=== PATIENT | female | born 1975 | race Two or more races ===

== ENCOUNTER → 2016-11-08 | Outpatient (CLI) | payer OTHER ==
[~2016-11-08] MED LIST: IBUP200C10 PO; TYLE325T5 PO
--- NOTE | 2016-11-09 06:32 | REP ---
Clinical: Constipation and abdominal pain. Technique: Upright view of the chest with supine and upright views of the abdomen and pelvis. Findings: Frontal upright view of the chest demonstrates no acute cardiopulmonary process or free air below the diaphragm to suspect pneumoperitoneum. Supine and upright views of the abdomen and pelvis demonstrate nonspecific bowel gas pattern without obstruction or perforation. No organomegaly. Cholelithiasis noted. Skeletal structures normal for age. Impression: Cholelithiasis. Nonspecific bowel gas pattern. Signed by Darwin Aceves MD 11/09/2016 03:28 A
== END ==
LOC: M LRY 10:09
PROVIDERS: ATTEND Family Medicine
DX: K59.00 Constipation, unspecified (principal)

== ENCOUNTER → 2016-11-08 | Outpatient (REF) ==
[2016-11-09 12:37] LABS: HEP C VIRUS AB INDEX SOURCE PT < 0.0 INDEX (0.0-0.8)
[2016-11-09 13:07] LABS: HIV SCREEN CENTAUR SOURCE NEGATIVE (NEGATIVE)
== END ==
LOC: M SFHCLERA 11:29
PROVIDERS: ATTEND Family Medicine
DX: Z00.00 Encounter for general adult medical examination without abnormal findings (principal)

== ENCOUNTER → 2016-11-08 | Outpatient (REF) | payer OTHER ==
[2016-11-08 13:27] LABS: BASO # 0.1 K/mm3 (0.0-0.2); BASO % 1.2 % (0.0-1.0); EOS # 0.1 K/mm3 (0.0-0.50); EOS % 1.5 % (0.0-3.0); LARGE UNSTAINED CELL # 0.1 K/mm3 (0.0-0.4); LARGE UNSTAINED CELL % 1.3 % (0.0-4.0); LYMPH # 1.9 K/mm3 (1.5-4.5); LYMPH % 32.1 % (24.0-44.0); MEAN CORPUSCULAR HGB CONC 33.2 g/dl (32.0-36.5); MEAN CORPUSCULAR VOLUME 84.4 fl (80.0-96.0); MONO # 0.2 K/mm3 (0.0-0.8); MONO % 3.7 % (0.0-5.0); NEUTROPHILS # 3.5 K/mm3 (1.8-7.7); NEUTROPHILS % 60.3 % (36.0-66.0); PLATELET COUNT, AUTOMATED 227 k/mm3 (150-450); RED CELL DISTRIBUTION WIDTH 12.9 % (11.5-14.5); WHITE BLOOD COUNT 5.8 K/mm3 (4.0-10.0)
[2016-11-08 13:36] LABS: INR 1.01
[2016-11-08 13:52] LABS: ALBUMIN 3.6 GM/DL (3.2-5.2); ALBUMIN/GLOBULIN RATIO 1.09 (1.00-1.93); ALKALINE PHOSPHATASE 93 U/L (45-117); ALT/SGPT 24 U/L (12-78); ANION GAP 6 MEQ/L (8-16); AST/SGOT 14 U/L (15-37); BILIRUBIN,TOTAL 0.3 MG/DL (0.2-1.0); BLOOD UREA NITROGEN 10 MG/DL (7-18); CALCIUM LEVEL 9.3 MG/DL (8.5-10.1); CARBON DIOXIDE LEVEL 28 MEQ/L (21-32); CHLORIDE LEVEL 105 MEQ/L (98-107); CHOLESTEROL LEVEL 149 MG/DL (<200); CREATININE FOR GFR 0.74 MG/DL (0.55-1.02); FREE T4 1.04 NG/DL (0.76-1.46); GLOMERULAR FILTRATION RATE > 60.0 (>60); GLUCOSE, FASTING 84 MG/DL (70-105); MAGNESIUM LEVEL 2.2 MG/DL (1.8-2.4); POTASSIUM SERUM 4.3 MEQ/L (3.5-5.1); SODIUM LEVEL 139 MEQ/L (136-145); TOTAL PROTEIN 6.9 GM/DL (6.4-8.2); TRIGLYCERIDES LEVEL 75 MG/DL (<150)
== END ==
LOC: M SFHCLERA 10:05
PROVIDERS: ATTEND Family Medicine
DX: T14.8 Other injury of unspecified body region (principal); K59.00 Constipation, unspecified; Z13.1 Encounter for screening for diabetes mellitus; Z13.220 Encounter for screening for lipoid disorders; X58.XXXA Exposure to other specified factors, initial encounter; Y92.9 Unspecified place or not applicable; Y93.9 Activity, unspecified; Y99.9 Unspecified external cause status

== ENCOUNTER → 2018-06-30 | Outpatient (REF) | payer OTHER ==
[~2018-06-30] MED LIST changes: -IBUP200C10 PO; +IBUP200C25 PO
== END ==
LOC: M LAB REF 09:16
PROVIDERS: ATTEND Internal Medicine Endocrinology, Diabetes & Metabolism
DX: E04.1 Nontoxic single thyroid nodule (principal)

== ENCOUNTER 2021-01-06 17:41 | Emergency (ER) | payer OTHER ==
[~2021-01-06] VITALS: Ht 167.6 cm; Wt 109.1 kg
--- NOTE | 2021-01-06 23:52 | REPVR ---
PROCEDURE INFORMATION: Exam: US Duplex Left Lower Extremity Veins, Limited Exam date and time: 01/06/2021 11:36 PM Age: 45 years old Clinical indication: Pain; Leg, lower; Left; Additional info: Cast with FX femur, sent by ortho RO dvy TECHNIQUE: Imaging protocol: Real-time Duplex ultrasound of the Left Lower Extremity with 2-D teresa scale, color Doppler flow and spectral waveform analysis with image documentation. Limited exam focused on the left lower extremity veins. COMPARISON: CT-Tib/Fib WITHOUT CONTRAST LEFT 01/06/2021 11:06 PM FINDINGS: Left deep veins: Unremarkable. The common femoral, femoral, proximal profunda femoral are patent without thrombus. Because of swelling and the patient's fracture /cast the popliteal vein could not be evaluated. Left superficial veins: Unremarkable. Saphenofemoral junction is patent without thrombus. Soft tissues: There is soft tissue swelling. IMPRESSION: There is no evidence of acute deep venous thrombosis left leg. However because of the injury and cast the popliteal vein could not be evaluated. Electronically signed by: Devyn Nichole On 01/06/2021 23:51:49 PM
--- NOTE | 2021-01-07 00:02 | REPVR ---
PROCEDURE INFORMATION: Exam: CT Left Lower Extremity Without Contrast, Ankle Exam date and time: 01/06/2021 11:14 PM Age: 45 years old Clinical indication: Injury or trauma; Fall; Fracture, traumatic; Closed fracture; Ankle; Left; Not specified; Additional info: FX distal fibula pre op per ortho TECHNIQUE: Imaging protocol: CT of the Left lower extremity without contrast was performed. Exam focused on the ankle. Radiation optimization: All CT scans at this facility use at least one of these dose optimization techniques: automated exposure control; mA and/or kV adjustment per patient size (includes targeted exams where dose is matched to clinical indication); or iterative reconstruction. COMPARISON: CR ANKLE COMPLETE 09/12/2014 12:00 PM FINDINGS: Bones/joints: There is a comminuted fracture of the distal fibula along with the soft tissue swelling. There is a small joint effusion. The tibia appears intact. The distal fibula demonstrates an oblique fracture line measuring approximately 3 mm. There is a separate fracture fragment more anterior in position that is and angulated. There are small fragments of bone at the distal medial malleolus and lateral malleolus which may be chronic. Soft tissues: There is prominent soft tissue swelling throughout the leg. Soft tissue swelling is noted of both the ankle and the foot. IMPRESSION: Prominent oblique fracture of the distal fibula with approximately 3 mm of separation. Anterior at the distal fibula there is a 2 cm fragment of bone by 7 mm and angulated. Electronically signed by: Devyn Nichole On 01/07/2021 00:02:09 AM
[2021-01-07 01:26] VITALS: BP 155/93
== END 2021-01-07 01:30 | disposition home or self-care (01) ==
LOC: M ED 17:41
DX: S82.435A Nondisplaced oblique fracture of shaft of left fibula, initial encounter for closed fracture (principal); W19.XXXA Unspecified fall, initial encounter; Y92.002 Bathroom of unspecified non-institutional (private) residence as the place of occurrence of the external cause; Y93.9 Activity, unspecified; Y99.9 Unspecified external cause status; K58.8 Other irritable bowel syndrome; N93.9 Abnormal uterine and vaginal bleeding, unspecified

== ENCOUNTER → 2022-08-22 | Outpatient (CLI) | payer BC ==
[2022-08-22 10:48] LABS: BASO % 0.8 % (0.0-1.0); EOS # 0.1 10^3/uL (0.0-0.5); EOS % 2.1 % (0.0-3.0); HEMATOCRIT 42.8 % (36.0-47.0); HEMOGLOBIN 13.7 g/dl (12.0-15.5); LYMPH % 37.7 % (24.0-44.0); MEAN CORPUSCULAR HEMOGLOBIN 27.5 pg (27.0-33.0); MEAN CORPUSCULAR VOLUME 85.8 fl (80.0-96.0); MONO # 0.4 10^3/uL (0.0-0.8); MONO % 6.6 % (2.0-8.0); NEUTROPHILS # 2.8 10^3/uL (1.5-8.5); NEUTROPHILS % 52.6 % (36.0-66.0); PLATELET COUNT, AUTOMATED 242 10^3/uL (150-450); RED BLOOD COUNT 4.99 10^6/uL (4.00-5.40); WHITE BLOOD COUNT 5.3 10^3/uL (4.0-10.0)
[2022-08-22 11:09] LABS: HEMOGLOBIN A1c 5.5 % (4.0-6.0)
[2022-08-22 11:20] LABS: ALBUMIN 3.5 G/DL (3.2-5.2); ALKALINE PHOSPHATASE 90 U/L (46-116); ALT/SGPT 23 U/L (7.0-40); AST/SGOT 15 U/L (<34); BILIRUBIN,TOTAL 0.4 MG/DL (0.3-1.2); BLOOD UREA NITROGEN 14 MG/DL (9-23); CALCIUM LEVEL 8.6 MG/DL (8.5-10.1); CARBON DIOXIDE LEVEL 27 MMOL/L (20-31); CHLORIDE LEVEL 104 MMOL/L (98-107); CHOLESTEROL LEVEL 164 MG/DL (<200); CHOLESTEROL RISK RATIO 3.08 (<5); CREATININE FOR GFR 0.75 MG/DL (0.55-1.30); GLOMERULAR FILTRATION RATE > 60.0 (>58); GLUCOSE, FASTING 89 MG/DL (60-100); HDL CHOLESTEROL 53.1 MG/DL (>40); LDL CHOLESTEROL 95.3 MG/DL (<100); NON-HDL-C 110.9 MG/DL; POTASSIUM SERUM 4.3 MMOL/L (3.5-5.1); SODIUM LEVEL 137 MMOL/L (136-145); TOTAL PROTEIN 6.5 G/DL (5.7-8.2); TRIGLYCERIDES LEVEL 78 MG/DL (<150)
[2022-08-22 11:21] LABS: FREE T4 0.95 NG/DL (0.89-1.76); THYROID STIMULATING HORMONE 2.917 uIU/ML (0.55-4.78)
== END ==
LOC: M WUC 08:19
PROVIDERS: ATTEND Nurse Practitioner Adult Health
DX: Z13.0 Encounter for screening for diseases of the blood and blood-forming organs and certain disorders involving the immune mechanism (principal); Z13.29 Encounter for screening for other suspected endocrine disorder; Z13.220 Encounter for screening for lipoid disorders

== ENCOUNTER → 2022-11-27 | Outpatient (CLI) | payer BC ==
[2022-11-29 18:07] LABS: MUMPS VIRUS IgG ANTIBODY 64.1 AU/mL (Immune >10.9); MUMPS VIRUS IgM ANTIBODY <0.80 AU (0.00-0.79); RUBEOLA IgG ANTIBODY 62.6 AU/mL (Immune >16.4)
== END ==
LOC: M LAB 10:49
PROVIDERS: ATTEND Nurse Practitioner Adult Health
DX: Z11.59 Encounter for screening for other viral diseases (principal)

== ENCOUNTER → 2023-04-05 | Outpatient (CLI) | payer BC, OTHER | LOC: M SLEEP 20:00 | PROVIDERS: ATTEND Physician Assistant | DX: G47.33 Obstructive sleep apnea (adult) (pediatric) (principal) ==

== ENCOUNTER → 2023-06-05 | Outpatient (CLI) | payer BC ==
[2023-06-05 10:28] LABS: FOLLICLE STIMULATING HORMONE 7.1 mIU/ML
[2023-06-05 10:29] LABS: LUTEINIZING HORMONE 22.9 mIU/ML
== END ==
LOC: M LAB 08:24
PROVIDERS: ATTEND Nurse Practitioner Adult Health
DX: N95.9 Unspecified menopausal and perimenopausal disorder (principal)

== ENCOUNTER 2024-08-03 19:37 | Emergency (ER) | payer OTHER ==
[~2024-08-03] VITALS: Ht 167.6 cm; Wt 81.2 kg
[2024-08-03] MEDS: IBUPROFEN 600MG TAB PO ONE (21:21)
[2024-08-03] MEDS: BACITRACIN OINTMENT 30GM TUBE TOP STA (21:23)
[2024-08-03 21:29] VITALS: BP 127/79; TEMP 97.8; O2SAT 99
== END 2024-08-03 21:26 | disposition home or self-care (01) ==
LOC: M ED 19:37
DX: S61.011A Laceration without foreign body of right thumb without damage to nail, initial encounter (principal); Y92.019 Unspecified place in single-family (private) house as the place of occurrence of the external cause; Y93.9 Activity, unspecified; Y99.9 Unspecified external cause status

== ENCOUNTER → 2024-12-15 | Outpatient (REF) | payer OTHER | LOC: M SFHCWAGY 15:03 | PROVIDERS: ATTEND Nurse Practitioner Family | DX: Z12.72 Encounter for screening for malignant neoplasm of vagina (principal); Z11.51 Encounter for screening for human papillomavirus (HPV) | CPT/HCPCS: 87624; G0123 ==

== ENCOUNTER → 2024-12-15 | Outpatient (CLI) | payer OTHER | LOC: M WHC 10:09 | PROVIDERS: ATTEND Nurse Practitioner Family | DX: Z12.31 Encounter for screening mammogram for malignant neoplasm of breast (principal); R92.333 Mammographic heterogeneous density, bilateral breasts ==

== ENCOUNTER → 2025-03-01 | Outpatient (CLI) | payer OTHER ==
[2025-03-01 08:40] LABS: BASO # 0.0 10^3/uL (0.0-0.2); BASO % 0.6 % (0.0-1.0); EOS # 0.1 10^3/uL (0.0-0.5); EOS % 1.3 % (0.0-3.0); LYMPH # 2.2 10^3/uL (1.5-5.0); LYMPH % 46.7 % (24.0-44.0); MONO # 0.2 10^3/uL (0.0-0.8); MONO % 4.6 % (2.0-8.0); NEUTROPHILS # 2.2 10^3/uL (1.5-8.5); NEUTROPHILS % 46.6 % (36.0-66.0); PLATELET COUNT, AUTOMATED 208 10^3/uL (150-450)
[2025-03-01 09:01] LABS: ESTIMATED AVERAGE GLUCOSE 91.0 MG/DL (60-110)
[2025-03-01 09:15] LABS: ALT/SGPT 12 U/L (7.0-40); AST/SGOT 11 U/L (<34); CALCIUM LEVEL 8.8 MG/DL (8.5-10.1); CARBON DIOXIDE LEVEL 27 MMOL/L (20-31); CHLORIDE LEVEL 105 MMOL/L (98-107); CHOLESTEROL LEVEL 162 MG/DL (<200); CHOLESTEROL RISK RATIO 2.44 (<5); CREATININE FOR GFR 0.68 MG/DL (0.55-1.30); GLOMERULAR FILTRATION RATE > 90.0 (>58); LDL CHOLESTEROL 85.6 MG/DL (<100); NON-HDL-C 95.8 MG/DL; POTASSIUM SERUM 4.3 MMOL/L (3.5-5.1); SODIUM LEVEL 139 MMOL/L (136-145); TRIGLYCERIDES LEVEL 51 MG/DL (<150)
[2025-03-01 09:16] LABS: FREE T4 1.18 NG/DL (0.89-1.76)
== END ==
LOC: M LAB 07:11
PROVIDERS: ATTEND Nurse Practitioner Adult Health
DX: E66.01 Morbid (severe) obesity due to excess calories (principal)